=== PATIENT | male | born 1970 | race American Indian/Alaskan Native ===

== ENCOUNTER 2018-11-02 23:25 | Emergency (ER) | payer OTHER ==
--- NOTE | 2018-11-03 00:56 | Emergency Department Report ---
ED General Adult HPI - General Chief complaint: Extremity Problem,Nontraumatic Stated complaint: PAIN IN BOTH LEGS/RIGHT FOOT HURTS Time Seen by Provider: 11/03/18 00:49 Source: patient Mode of arrival: Ambulatory Limitations: No Limitations - History of Present Illness Initial comments: Patient is a 48-year-old male that presents emergency room with bilateral leg cramps. Patient states they started 3 hours ago. Patient states the pain was a 6 out of 10. Patient states it improves with rest and worse with movement. Patient denies fever and chills. Patient denies chest pain or shortness of breath. Patient states he's had a stent in his right leg and a DVT in his right leg. Patient states he is compliant with all his medication is currently taking is xarelto. Location: lower extremity Severity scale (0 -10): 6 Quality: aching, other (cramping. ) Consistency: intermittent Improves with: rest Worsens with: movement Associated Symptoms: denies other symptoms. denies: confusion, chest pain, cough, diaphoresis, fever/chills, headaches, loss of appetite, malaise, nausea/vomiting, rash, seizure, shortness of breath, syncope, weakness Treatments Prior to Arrival: none - Related Data Home Medications Medication Instructions Recorded Confirmed Last Taken Xarelto 25 mg PO DAILY 11/03/18 11/03/18 11/03/18 Previous Rx's Medication Instructions Recorded Last Taken Type Metaxalone [Skelaxin] 800 mg PO TID PRN #15 tablet 11/03/18 Unknown Rx Allergies Allergy/AdvReac Type Severity Reaction Status Date / Time No Known Allergies Allergy Unverified 11/03/18 00:21 ED Review of Systems ROS: Stated complaint: PAIN IN BOTH LEGS/RIGHT FOOT HURTS Other details as noted in HPI Constitutional: denies: chills, fever Eyes: denies: eye pain, eye discharge, vision change ENT: denies: ear pain, throat pain Respiratory: denies: cough, shortness of breath, wheezing Cardiovascular: denies: chest pain, palpitations Endocrine: no symptoms reported Gastrointestinal: denies: abdominal pain, nausea, diarrhea Genitourinary: denies: urgency, dysuria Musculoskeletal: denies: back pain, joint swelling, arthralgia Skin: denies: rash, lesions Neurological: denies: headache, weakness, paresthesias Psychiatric: denies: anxiety, depression Hematological/Lymphatic: denies: easy bleeding, easy bruising ED Past Medical Hx - Past Medical History Previous Medical History?: Yes Additional medical history: Right DVT - Surgical History Past Surgical History?: Yes Additional Surgical History: Right Leg stents - Family History Family history: no significant - Social History Smoking Status: Never Smoker Substance Use Type: None - Medications Home Medications: Home Medications Medication Instructions Recorded Confirmed Last Taken Type Metaxalone [Skelaxin] 800 mg PO TID PRN #15 tablet 11/03/18 Unknown Rx Xarelto 25 mg PO DAILY 11/03/18 11/03/18 11/03/18 History ED Physical Exam - General Limitations: No Limitations General appearance: alert, in no apparent distress - Head Head exam: Present: atraumatic, normocephalic - Eye Eye exam: Present: normal appearance - ENT ENT exam: Present: mucous membranes moist - Neck Neck exam: Present: normal inspection - Respiratory Respiratory exam: Present: normal lung sounds bilaterally. Absent: respiratory distress - Cardiovascular Cardiovascular Exam: Present: regular rate, normal rhythm. Absent: systolic murmur, diastolic murmur, rubs, gallop - GI/Abdominal GI/Abdominal exam: Present: soft, normal bowel sounds - Rectal Rectal exam: Present: deferred - Extremities Exam Extremities exam: Present: normal inspection, full ROM, normal capillary refill. Absent: tenderness, pedal edema, joint swelling, calf tenderness - Back Exam Back exam: Present: normal inspection - Neurological Exam Neurological exam: Present: alert, oriented X3 - Psychiatric Psychiatric exam: Present: normal affect, normal mood - Skin Skin exam: Present: warm, dry, intact, normal color. Absent: rash ED Course Vital Signs 11/02/18 11/03/18 11/03/18 23:31 00:49 01:00 Temperature 97.9 F Pulse Rate 64 Respiratory 18 17 Rate Blood Pressure 131/77 111/58 O2 Sat by Pulse 99 97 96 Oximetry 11/03/18 11/03/18 11/03/18 01:15 01:30 01:46 Temperature Pulse Rate Respiratory 17 13 14 Rate Blood Pressure 112/61 116/55 117/57 O2 Sat by Pulse 96 93 96 Oximetry 11/03/18 11/03/18 11/03/18 02:00 02:16 02:30 Temperature Pulse Rate Respiratory 15 15 14 Rate Blood Pressure 120/66 136/64 110/57 O2 Sat by Pulse 98 98 91 Oximetry 11/03/18 11/03/18 11/03/18 02:45 03:00 03:16 Temperature Pulse Rate Respiratory 13 Rate Blood Pressure 115/67 121/66 121/63 O2 Sat by Pulse 97 97 98 Oximetry 11/03/18 03:30 Temperature Pulse Rate Respiratory Rate Blood Pressure 115/67 O2 Sat by Pulse 98 Oximetry - Reevaluation(s) Reevaluation #1: Patient's initial evaluation done and patient has good pedal pulses and bilateral lower extremities are warm to touch. Patient denies tenderness upon palpation. 11/03/18 00:49 Reevaluation #2: Discussed all results with patient. Patient is stable for discharge. Patient will be discharged home. Patient agrees to plan of care. Patient given discharge instructions. Patient voiced understanding of discharge instructions. 11/03/18 02:33 ED Medical Decision Making - Lab Data Result diagrams: 11/03/18 00:38 11/03/18 00:41 - Medical Decision Making Patient is a 48-year-old male became ill a bilateral lower extremity cramping and muscle spasms. Patient's labs unremarkable. Patient's clinical exam shows positive pedal pulses and warm extremities and nontender extremities. Patient pain-free prior to discharge. Patient's discharge. Patient will be discharged home with discharge instructions. - Differential Diagnosis muscle spasm. Muscle cramps. Critical care attestation.: If time is entered above; I have spent that time in minutes in the direct care of this critically ill patient, excluding procedure time. ED Disposition Clinical Impression: Muscle spasm, Muscle cramps Leg pain Qualifiers: Laterality: bilateral Qualified Code(s): M79.604 - Pain in right leg Disposition: DC-01 TO HOME OR SELFCARE Is pt being admited?: No Does the pt Need Aspirin: No Condition: Stable Additional Instructions: Patient to follow-up with primary care in 2-3 days. Patient to take Tylenol when necessary for pain. Patient to return to ER if condition worsens. Patient to take meds as directed. Patient to increase water. Patient to rest. Patient to continue all meds. Prescriptions: Metaxalone [Skelaxin] 800 mg PO TID PRN #15 tablet PRN Reason: Spasms Referrals: ELIJAH ZABALA MD [Primary Care Provider] - 2-3 Days Time of Disposition: 02:37
[2018-11-03 00:59] LABS: Eosinophils # (Auto) 0.2 K/mm3 (0.0-0.4); Eosinophils % (Auto) 4.9 % (0.0-4.3); Hematocrit 46.2 % (35.5-45.6); Hemoglobin 15.2 gm/dl (11.8-15.2); Lymphocytes # (Auto) 1.8 K/mm3 (1.2-5.4); Lymphocytes % (Auto) 38.4 % (13.4-35.0); Mean Corpuscular HGB Conc 33 % (32-34); Mean Corpuscular Volume 89 fl (84-94); Monocytes # (Auto) 0.5 K/mm3 (0.0-0.8); Monocytes % (Auto) 9.8 % (0.0-7.3); Platelet Count 267 K/mm3 (140-440); Red Blood Count 5.19 M/mm3 (3.65-5.03); Red Cell Distribution Width 13.9 % (13.2-15.2)
[2018-11-03 01:09] LABS: INR 2.02 (0.87-1.13)
[2018-11-03 01:10] LABS: Partial Thromboplastin Time 33.8 Sec. (24.2-36.6)
[2018-11-03 01:54] LABS: BUN/Creatinine Ratio 15; Blood Urea Nitrogen 15 mg/dL (9-20); Hemolysis Index 8
[2018-11-03 04:36] VITALS: BP 115/67
== END 2018-11-03 03:30 | disposition home or self-care (01) ==
LOC: ED 23:25
DX: M62.838 Other muscle spasm (principal); M79.604 Pain in right leg; M79.605 Pain in left leg; Z86.718 Personal history of other venous thrombosis and embolism; Z79.899 Other long term (current) drug therapy
CPT/HCPCS: 36415; 80048; 82550; 85025; 85610; 85730; 99283